=== PATIENT | female | born 1975 | race Two or more races ===

== ENCOUNTER 2023-08-19 19:15 | Emergency (ER) | payer SELFPAY ==
[~2023-08-19] VITALS: Ht 160 cm; Wt 109.1 kg
[2023-08-19 19:36] VITALS: BP 138/88; PULSE 93; RESP 18; TEMP 98.3
== END 2023-08-19 22:35 | disposition left against medical advice (07) ==
LOC: EMS 19:16
DX: R10.32 Left lower quadrant pain (principal); Z53.21 Procedure and treatment not carried out due to patient leaving prior to being seen by health care provider

== ENCOUNTER 2024-11-12 20:37 | Emergency (ER) | payer OTHER ==
[~2024-11-12] VITALS: Ht 160 cm; Wt 100.0 kg
[2024-11-12 21:06] LABS: PLATELET COUNT (AUTO) 358 K/uL (150-450); RED BLOOD CELL COUNT(AUTO) 4.54 MIL/uL (4.00-5.20); RED CELL DISTRIBUTION WIDTH 13.7 % (11.5-14.5); WHITE BLOOD COUNT (AUTO) 9.6 K/uL (4.5-11.0)
[2024-11-12 21:15] LABS: CALCIUM, TOTAL 8.6 mg/dL (8.8-10.5); CREATININE 0.60 mg/dL (0.60-1.30); GLOMERULAR FILTR. RATE CALC > 60 mL/min (>60); GLUCOSE,RANDOM 117 mg/dL (70-110); SODIUM SERUM 137 mmol/L (136-145); UREA NITROGEN, BLOOD 13 mg/dL (7-18)
[2024-11-12 21:25] LABS: ASPARTATE AMINOTRANSFERASE 9 U/L (15-37); HCG,QUANTITATIVE < 1 mIU/mL (0-6); TOTAL PROTEIN, SERUM 7.4 g/dL (6.4-8.2)
[2024-11-12 22:00] VITALS: TEMP 97.3
[2024-11-13] VITALS: BP 128/88; PULSE 75; RESP 16; O2SAT 98
[2024-11-13] MEDS: ACETAMINOPHEN 500 MG TABLET PO ONE (00:07)
[2024-11-13] MEDS: IBUPROFEN 400 MG TABLET PO ONE (00:07)
[2024-11-13 00:34] LABS: APPEARANCE,URINE CLEAR (CLEAR); GLUCOSE, URINE (UA) NEGATIVE (NEGATIVE); LEUKOCYTE ESTERASE ,URINE NEGATIVE (NEGATIVE); NITRATE,URINE NEGATIVE (NEGATIVE); OCCULT BLOOD,URINE NEGATIVE (NEGATIVE); SPECIFIC GRAVITIY, URINE 1.023 (1.003-1.030)
== END 2024-11-13 00:59 | disposition home or self-care (01) ==
LOC: EMS 20:37
DX: R10.32 Left lower quadrant pain (principal); R10.2 Pelvic and perineal pain; I10 Essential (primary) hypertension
CPT/HCPCS: 80048; 80076; 81003; 83690; 84702; 85025; 99283